=== PATIENT | female | born 1995 | race Hispanic/Latino ===

== ENCOUNTER 2017-08-03 23:54 | Emergency (ER) | payer SELFPAY ==
[2017-08-04] MEDS ORDERED: Dexamethasone 4 mg/ml Vial ONE (00:44)
[2017-08-04] MEDS ORDERED: Famotidine 20 MG TAB ONE (00:44)
== END 2017-08-04 00:53 | disposition home or self-care (01) ==
LOC: ERS 23:54
DX: L50.0 Allergic urticaria (principal)
CPT/HCPCS: 99283; J1100

== ENCOUNTER 2017-09-12 12:29 | Emergency (ER) | payer SELFPAY ==
[2017-09-12 13:15] LABS: #Basophils 0.1 thou/uL (0.0-0.2); #Eosinphils 0.2 thou/uL (0.0-0.7); #Lymphocytes 2.7 thou/uL (1.20-3.40); #Monocytes 0.5 thou/uL (0.11-0.59); #Neutrophils 2.5 thou/uL (1.40-6.50); %Basophils 1.5 % (0.0-1.0); %Lymphocytes 45.5 % (28.0-48.0); %Monocytes 7.6 % (0.0-4.0); %Neutrophils 42.4 % (31.0-61.0); Hemoglobin 14.3 g/dL (12.0-16.0); Mean Corpuscular HGB CONC 33.3 g/dL (32.0-36.0); Mean Corpuscular Volume 89.9 fl (77.0-87.0); Mean Platelet Volume 7.5 fL (7.4-10.4); Platelet Count 297 thou/uL (130-400); RBC Distribution Width 11.8 % (11.5-14.5); Red Blood Cell (RBC) Count 4.76 mill/uL (4.00-5.20); White Blood Cell (WBC) Count 5.9 thou/uL (4.8-10.8)
--- NOTE | 2017-09-12 14:02 | ULT ---
TRANSABDOMINAL AND TRANSVAGINAL PELVIC ULTRASOUND: INDICATION: Vaginal bleeding. TECHNIQUE: Frias scale, color Doppler, and vascular duplex with spectral analysis was performed. FINDINGS: The uterus measures 4.7 x 5.3 x 3.8 cm. Endometrial stripe measures 1.2 cm. No intrauterine gestati on is noted. The right ovary measures 2.5 x 1.4 x 1.8 cm. The left ovary measures 2.6 x 1.4 x 1.6 cm. There is n ormal flow to both ovaries. No free fluid is evident. IMPRESSION: No intrauterine gestation demonstrated. Findings may relate to early , a missed , o r early ectopic . Recommend continued clinical and sonographic followup. POS: ROBERT
[2017-09-12 15:59] LABS: Bilirubin Negative (Negative); Blood, Urine Large (Negative); Clarity CLOUDY (Clear); Glucose, Urine (Dipstick) Negative (Negative); Leukocyte Trace (Negative); Nitrite Negative (Negative); Protein, Urine (Dipstick) 100 mg/dL (Neg-Trace); Specific Gravity, Urine 1.014 (1.002-1.036); Urobilinogen 0.2 mg/dL (0.2-1.0)
[2017-09-12 16:02] LABS: Bacteria/HPF Rare-Few HPF (None Seen); Hyaline Casts/LPF 0-3 HYALINE CAST LPF (0-3 Hyaline); Pathc Cast-AUWi Flag 0.54 (0-2.49); RBC/HPF GREATER THAN 50-TNTC HPF (0-3)
== END 2017-09-12 16:35 | disposition home or self-care (01) ==
LOC: ERS 12:29
DX: O99.89 Other specified diseases and conditions complicating pregnancy, childbirth and the puerperium (principal); R10.2 Pelvic and perineal pain; Z3A.08 8 weeks gestation of pregnancy
CPT/HCPCS: 36415; 76856; 81003; 81015; 84702; 85025; 86850; 86900; 86901

== ENCOUNTER 2018-12-30 21:44 | Emergency (ER) | payer SELFPAY | END 2018-12-30 21:55 | disposition left against medical advice (07) | LOC: ERS 21:44 | DX: Z53.21 Procedure and treatment not carried out due to patient leaving prior to being seen by health care provider (principal) ==

== ENCOUNTER 2018-12-30 22:16 | Emergency (ER) | payer SELFPAY ==
[2018-12-30 23:05] LABS: #Basophils 0.1 thou/uL (0.0-0.2); #Eosinphils 0.3 thou/uL (0.0-0.7); #Monocytes 0.9 thou/uL (0.11-0.59); #Neutrophils 5.9 thou/uL (1.40-6.50); %Basophils 0.9 % (0.0-1.0); %Eosinophils 2.5 % (0.0-10.0); %Lymphocytes 35.5 % (21.0-51.0); %Monocytes 8.2 % (0.0-10.0); %Neutrophils 52.9 % (42.0-75.0); Hemoglobin 12.3 g/dL (12.0-16.0); Mean Corpuscular HGB CONC 32.4 g/dL (32.0-36.0); Mean Corpuscular Hemoglobin 28.2 pg (27.0-31.0); Mean Platelet Volume 7.1 fL (7.4-10.4); Platelet Count 287 thou/uL (130-400); Red Blood Cell (RBC) Count 4.38 mill/uL (4.20-5.40); White Blood Cell (WBC) Count 11.2 thou/uL (4.8-10.8)
[2018-12-30 23:07] LABS: Bilirubin Negative (Negative); Blood, Urine Negative (Negative); Clarity Clear (Clear); Glucose, Urine (Dipstick) Negative (Negative); Leukocyte Negative (Negative); Nitrite Negative (Negative); Protein, Urine (Dipstick) Negative (Neg-Trace); Urobilinogen 0.2 mg/dL (0.2-1.0)
[2018-12-30 23:19] LABS: Anion Gap 13 mmol/L (10-20); BUN (Urea Nitrogen) 9 mg/dL (7.0-18.7); Calc. Creatinine Clearance 0 mL/min (70-130); Calcium 9.5 mg/dL (7.8-10.44); Carbon Dioxide 22 mmol/L (22-29); Chloride 107 mmol/L (98-107); Estimated GFR-MDRD Greater than 90; Glucose 87 mg/dL (70-105); Potassium 3.6 mmol/L (3.5-5.1); Sodium 138 mmol/L (136-145)
--- NOTE | 2018-12-31 08:53 | ULT ---
PRELIMINARY REPORT/[facility]/EMERGENCY AFTER HOURS PROCEDURE: EXAM: US Duplex Left Lower Extremity Veins, Limited EXAM DATE/TIME: 12/31/2018 1:32 AM CLINICAL HISTORY: 49 years old, female; Pain; Leg, lower; Left TECHNIQUE: Imaging protocol: Real-time Duplex ultrasound of the Left Lower Extremity with 2-D ortiz scale, color Doppler flow and spectral waveform analysis. Limited exam focused on the left lower extremity veins. COMPARISON: No relevant prior studies available. FINDINGS: Left deep veins: Unremarkable. The common femoral, femoral, proximal profunda femoral and popliteal v eins are patent without thrombus. Normal Doppler waveforms. Normal compressibility and/or augmentatio n response. Left superficial veins: Unremarkable. Saphenofemoral junction is patent without thrombus. Soft tissues: Unremarkable. IMPRESSION: No acute findings. No evidence of deep vein thrombosis. Thank you for allowing us to participate in the care of your patient. Dictated and Authenticated by: Dariel Escobar MD 12/31/2018 2:59 AM Central Time ([place] & [place]) FINAL REPORT PELVIC ULTRASOUND: HISTORY: Pelvic pain. Positive . FINDINGS: Real-time imaging of the pelvis was obtained both transabdominally as well as endovaginally. This zoe ws an intrauterine gestational sac and a yolk sac, but no definite pole. The gestational sac me asurements are 8.0 mm, corresponding to 5 weeks/4 days. Right and left ovaries are both well visualized. There is a 1.5 cm right ovarian cyst present. Left o vary is normal in appearance. DOPPLER EVALUATION WITH SPECTRAL ANALYSIS: Normal flow is shown to both adnexa. Minimal free fluid incidentally seen. IMPRESSION: Intrauterine gestational sac with a yolk sac, but no definite pole at this time. This could rep resent an early . A blighted ovum is not excluded. Follow-up ultrasound is recommended as cl inically indicated. This report is in agreement with the preliminary report issued by [facility].
[2019-01-02 00:34] LABS: Chlamydia by PCR Not Detected (NotDetected); GC by PCR Not Detected (NotDetected)
== END 2018-12-31 02:00 | disposition home or self-care (01) ==
LOC: SCSER 22:16
DX: O99.89 Other specified diseases and conditions complicating pregnancy, childbirth and the puerperium (principal); R10.30 Lower abdominal pain, unspecified; Z3A.01 Less than 8 weeks gestation of pregnancy
CPT/HCPCS: 76856; 80048; 81003; 84702; 85025; 87480; 87491; 87510; 87591; 87660

== ENCOUNTER 2019-02-21 14:13 | Emergency (ER) | payer OTHER ==
[2019-02-21 15:09] LABS: #Eosinphils 0.1 thou/uL (0.0-0.7); #Monocytes 0.4 thou/uL (0.11-0.59); #Neutrophils 5.2 thou/uL (1.40-6.50); %Basophils 0.1 % (0.0-1.0); %Eosinophils 0.9 % (0.0-10.0); %Lymphocytes 25.7 % (21.0-51.0); %Monocytes 4.7 % (0.0-10.0); %Neutrophils 68.6 % (42.0-75.0); Hemoglobin 13.8 g/dL (12.0-16.0); Mean Corpuscular HGB CONC 35.4 g/dL (32.0-36.0); Mean Corpuscular Hemoglobin 30.2 pg (27.0-31.0); Mean Corpuscular Volume 85.2 fL (78.0-98.0); Platelet Count 268 thou/uL (130-400); RBC Distribution Width 11.8 % (11.5-14.5); Red Blood Cell (RBC) Count 4.58 mill/uL (4.20-5.40); White Blood Cell (WBC) Count 7.6 thou/uL (4.8-10.8)
[2019-02-21 15:27] LABS: ALT (SGPT) 13 U/L (8-55); AST (SGOT) 14 U/L (5-34); Albumin 4.4 g/dL (3.5-5.0); Alkaline Phosphatase 77 U/L (40-150); Anion Gap 14 mmol/L (10-20); BUN (Urea Nitrogen) 6 mg/dL (7.0-18.7); Bilirubin, Total 0.5 mg/dL (0.2-1.2); Calc. Creatinine Clearance 0 mL/min (70-130); Calcium 9.5 mg/dL (7.8-10.44); Carbon Dioxide 22 mmol/L (22-29); Chloride 102 mmol/L (98-107); Estimated GFR-MDRD Greater than 90; Globulin 3.6 g/dL (2.4-3.5); Glucose 109 mg/dL (70-105); Potassium 3.4 mmol/L (3.5-5.1); Sodium 135 mmol/L (136-145)
[2019-02-21 15:39] LABS: Bilirubin Negative (Negative); Blood, Urine Negative (Negative); Clarity CLOUDY (Clear); Glucose, Urine (Dipstick) Negative (Negative); Leukocyte Trace (Negative); Nitrite Negative (Negative); Protein, Urine (Dipstick) 30 mg/dL (Neg-Trace); Specific Gravity, Urine 1.036 (1.002-1.036)
[2019-02-21 15:41] LABS: Bacteria/HPF 1+ HPF (None Seen)
[2019-02-21 15:42] LABS: Pathc Cast-AUWi Flag 5.16 (0-2.49)
[2019-02-21 15:44] LABS: Hyaline Casts/LPF 0-3 HYALINE CAST LPF (0-3 Hyaline)
[2019-02-21] MEDS ORDERED: Ondansetron PF 4 MG/2 ML Vial ONE (15:48)
[2019-02-21 16:28] LABS: BHCG - Serum POSITIVE (NEGATIVE); Pregs Control Background? CLEAR/WHITE (CLR/WHITE); Pregs Control Bar Appear? YES (CONTROL BAR)
== END 2019-02-21 17:36 | disposition home or self-care (01) ==
LOC: ERS 14:13
DX: O21.1 Hyperemesis gravidarum with metabolic disturbance (principal); Z3A.13 13 weeks gestation of pregnancy
CPT/HCPCS: 36415; 80053; 81003; 81015; 84703; 85025; 96361; 96374; J2405

== ENCOUNTER 2019-08-04 21:32 | Day surgery (SDC) | payer OTHER ==
[2019-08-04] MEDS ORDERED: hydrALAZINE 20 MG/ML VIAL SLOW IVP PRN (22:00)
--- NOTE | 2019-08-04 22:01 | PDOC.FPROB ---
FMR OB H&P: HPI - History of Present Illness Chief Complaint: ctx Indentification: 23 y/o @ 36.0 WGA History of Present Illness: Presents with cramping abdominal pain since 2044 tonight. She has been at work all day and reports good fluid intake while at work. +FM, denies vaginal bleeding, d/c, LOF, dysuria. Primary Care Physician: Dr. Bridges FMR OB H&P: Current - Care : 1 Para: 0 Gestational age: 36.0 Due date: 09/01/19 FMR OB H&P: History - Past Medical History PMH: None - OB History OB History: - Surgical History Sx History: None - Social History Social History: Denies EtOH, drug, tobacco use - Family History Family History: Mother - DM FMR OB H&P: Medications - Current Allergies/Adverse Reactions: Allergies Allergy/AdvReac Type Severity Reaction Status Date / Time No Known Allergies Allergy Verified 08/04/19 22:07 FMR OB H&P: ROS - Review of Systems General: denies: fever/chills, weight/appetite/sleep changes Eyes: denies: vision changes, double vision ENT: denies: nasal congestion, sore throat Cardiovascular: reports: edema. denies: chest pain Respiratory: denies: cough, shortness of breath Gastrointestinal: reports: abdominal pain. denies: nausea Genitourinary (Female): denies: dysuria, hematuria, vaginal discharge, vaginal bleeding Musculoskeletal: denies: pain, swelling Neurologic: denies: numbness, weakness Integumentary: denies: itching, rash FMR OB H&P: Vital Signs - Maternal Vital signs: BP 121/73, HR 68, RR 18, Temp 98.3 - Heart Tones Baseline: 130 Variability: moderate Acceleration: present Deceleration: absent Category: category 1 [place] contractions every: None FMR OB H&P: Physical Exam - Physical Exam General: NAD, awake, alert and oriented HEENT: MMM, conjunctiva clear, grossly normal vision, grossly normal hearing Neck: supple, no LAD Heart: pulses present, other (trace pedal edema) General: no respiratory distress Abdomen: soft, gravid Musculoskeletal: pulses present, FROM in all four extremities Skin: good tugor, capillary refill <2 seconds Lymphatic: no unusual bruising or bleeding, no purpura Psychiatric: intact recent and remote memory, good judgement and insight - Pelvic Exam SVE: 1/0/-2 FMR OB H&P: A/P - Problem List (1) contractions Current Visit: Yes Status: Acute Code(s): O47.9 - FALSE LABOR, UNSPECIFIED Assessment and Plan: Pt presents complaining of cramping abd pain SVE 1/0/-2, no ctx on toco -Will check cath UA -1L LR -Recheck cervix in 2 hours d/c home if cervical check unchanged and further plan pending UA results Disposition: dispo pending 2 hour obs Discussion: Date/Time: 08/04/19 2200 This H&P was discussed with Dr. Hernandez who agrees with the above documentation and plan. Signature: Nicole He MD, PGY-3
[2019-08-04 22:05] VITALS: BMI 36.3
--- NOTE | 2019-08-04 22:25 | PDOC.EVN ---
Event Note - Event Note Event Note: @2200 OBG[facility] Faculty I have seen patient at bedside. At bedside now. CC: Possible CTX HPI: 23 yo G1 at 36 weeks with EDC 09/01/19. Here for possible CTX x 1 hr. Good FM No Vb, no LOF Review of Systems: complete and as per HPI Past medical: neg past surgical: none OB HX: G1 Meds: none Allergies: none Physical: NAD Abdomen soft and NT CX: 1cm/th/-3 per first exam Monitors: reactive NST...irritability on toco A/P: 36 weeks with possible CTX and CX 1cm...GBS not yet done in office. Plan: 1. 2 HR obs 2. IVFs 3. Monitors 4. Folllow for now
[2019-08-04] MEDS ORDERED: Lactated Ringer's 1,000 ML IV SCH (22:30)
[2019-08-04 23:04] LABS: Bacteria/HPF None Seen HPF (None Seen); Bilirubin Negative (Negative); Blood, Urine Negative (Negative); Clarity Clear (Clear); Glucose, Urine (Dipstick) Normal (Negative); Leukocyte Negative Leu/uL (Negative); Nitrite Negative (Negative); Protein, Urine (Dipstick) Negative (Neg-Trace); RBC/HPF None Seen HPF (0-3); Squamous Epithelial 0-3 HPF (0-3); Urobilinogen Normal mg/dL (Less than 2); WBC/HPF None Seen HPF (0-3)
[2019-08-04 23:05] LABS: Urine Culture Reflex No No
--- NOTE | 2019-08-04 23:19 | PDOC.EVN ---
Event Note - Event Note Event Note: UA is clear
== END 2019-08-05 00:25 | disposition home or self-care (01) ==
LOC: L&D/OP 21:32
PROVIDERS: ATTEND Student in an Organized Health Care Education/Training Program
DX: O47.03 False labor before 37 completed weeks of gestation, third trimester (principal); Z3A.36 36 weeks gestation of pregnancy
CPT/HCPCS: 81001

== ENCOUNTER 2019-08-22 07:54 | Inpatient (IN) | payer OTHER ==
[2019-08-22] MEDS ORDERED: Bupivacaine 0.25% HCL 30 ML VIAL ONE (12:59)
[2019-08-22] MEDS ORDERED: Bupivacaine HCl 0.5%/Epinephrine 1:200,000/PF 30 ml Vial ONE (12:59)
[2019-08-22] MEDS ORDERED: Bupivacaine/Epinephrine 0.25% 30 ML VIAL ONE (12:59)
[2019-08-22 13:04] LABS: Amnisure Test RUPTURE DETECTED (No Rupture)
[2019-08-22 13:05] LABS: Amnisure Internal Control QC ACCEPTABLE (ACCEPTABLE)
[2019-08-22 13:08] VITALS: BMI 37.1
--- NOTE | 2019-08-22 13:21 | PDOC.LDHP ---
Labor and Delivery H&P Chief complaint: contractions HPI: 23 yo G1 @ 38w4d by LMP c/w 9 week CRL. Benign antepartum course. C/O ctx and also had some slight LOF after walking. Amnisure positive. Current gestational age (weeks): 38 Due date: 09/01/19 Dating criteria: last menstrual period Grav: 1 Para: 0 Current complications: none Abnormal US findings: No Past Medical History: Denies Current medications: pre-darell vitamins Previous surgical history: none Allergies/Adverse Reactions: Allergies Allergy/AdvReac Type Severity Reaction Status Date / Time No Known Allergies Allergy Verified 08/22/19 09:23 Social history: none - Physical Exam Vital signs reviewed and normal: yes General: NAD Heart: RRR Lungs: nonlabored breathing Abdomen: gravid Extremeties: no edema FHT: category 1 [place] contractions every: q3-5 min - Vaginal Exam cm dilated: 3 (BBOW, cepahlic ) Effacement: 50% Station: -2 - OB Labs Blood type: O RH: positive Antibody Screen: negative HIV: negative RPR: negative HEPSAg: negative 1 hour GCT: negative GBS: negative Urine drug screen: negative Rubella: immune - Assessment 38wd4 IUP Latent labor SROM - Plan Plan: admit to L&D, labor augmentation if indicated, informed consent obtained, anesthesia consult for pain management
[2019-08-22] MEDS ORDERED: hydrALAZINE 20 MG/ML VIAL SLOW IVP PRN (13:23)
[2019-08-22] MEDS ORDERED: Misoprostol 200 MCG TAB PR PRN (13:23)
[2019-08-22] MEDS ORDERED: Acetaminophen 500 MG TAB PO PRN (13:23)
[2019-08-22] MEDS ORDERED: HYDROcodone/Acetaminophen 5/325 mg Tablet PO PRN (13:23)
[2019-08-22] MEDS ORDERED: Methylergonovine 0.2 MG/ML VIAL IM PRN (13:23)
[2019-08-22] MEDS ORDERED: Lidocaine 1% (PF) 30 ML VIAL SC PRN (13:23)
[2019-08-22] MEDS ORDERED: Carboprost 250 MCG/ML AMP IM PRN (13:23)
[2019-08-22] MEDS ORDERED: Ondansetron PF 4 MG/2 ML Vial IVP PRN (13:23)
[2019-08-22] MEDS ORDERED: Diphenoxylate HCl/Atropine Tablet PO PRN (13:23)
[2019-08-22] MEDS ORDERED: Promethazine HCl 25 MG/ML VIAL IM PRN (13:23)
[2019-08-22] MEDS ORDERED: Ibuprofen 800 MG TAB PO PRN (13:23)
[2019-08-22 14:27] LABS: Hemoglobin 9.6 g/dL (12.0-16.0); Mean Corpuscular HGB CONC 32.6 g/dL (32.0-36.0); Mean Corpuscular Hemoglobin 25.9 pg (27.0-31.0); Mean Corpuscular Volume 79.3 fL (78.0-98.0); Mean Platelet Volume 10.2 fL (7.4-10.4); Platelet Count 210 thou/uL (130-400); RBC Distribution Width 14.5 % (11.5-14.5); White Blood Cell (WBC) Count 10.3 thou/uL (4.8-10.8)
--- NOTE | 2019-08-22 14:31 | HP ---
TIME OF EVALUATION: 1400 hours. LOCATION: Triage in Labor and Delivery. REASON FOR EVALUATION: Contractions and possible leakage of fluid. HISTORY OF PRESENT ILLNESS: This is a 23-year-old, G1, P0, at 38 weeks and 4 days with an EDC of September 01, 2019, here with the above chief complaint. She has good movement. Denies any issues. REVIEW OF SYSTEMS: Complete review of systems was checked and is otherwise negative unless specified in the HPI. PAST MEDICAL HISTORY: Negative. PAST SURGICAL HISTORY: Noncontributory. ALLERGIES: NONE. OB HISTORY: She is a G1, P0, and her GBS is negative. PHYSICAL EXAMINATION: VITAL SIGNS: Her blood pressure is 120/80, blood pressure is normal; and her temperature is 98.4. Cervical exam by RN; it is 3 cm dilated, 50% effaced, -3 station, slightly posterior. Due to the leakage of fluid history, an AmniSure was sent and AmniSure was positive. On monitor, heart tones were in the 130s to 140s with moderate variability and accelerations. It is category 1. Tocodynamometer shows irregular contractions, but about every 3 to 6 minutes. ASSESSMENT: This is a G1, P0, at early term (38 weeks and 4 days), with latent labor and rupture of membranes. PLAN: 1. Admission to Labor and Delivery. 2. Pain control. 3. Pitocin augmentation if needed. 4. The patient has been seen at bedside by me and plan reviewed. Job ID: [id number]
[2019-08-22 15:03] LABS: Syphilis Antibody Nonreactive (Nonreactive); Syphilis Antibody Index 0.04 S/CO (<1.00 Non-Reactive)
[2019-08-22 15:04] LABS: HBSAg Index 0.25 S/CO (0-0.99); HIV (1/2) Antibody/Antigen Non-Reactive (NonReactive); HIV 1/2 INDEX 0.06 S/CO (<1.00); Hep B Surf Ag Non-Reactive S/CO (NonReactive)
--- NOTE | 2019-08-22 17:25 | PDOC.LDPN ---
Labor & Delivery Progress Note - Subjective Subjective: painful contractions - Objective Abnormal vital signs: 149/89 as I was explaining IUPC to her (stress response?) General: breathing through contractions Uterine fundus: non tender SVE: 3 Dilation: 75 Station: -1 FHT: category 1 [place] contractions every: irregular every 3-6 Other exam findings: Posterior Procedures: IUPC placed by me AROM: bloody fluid IUPC placed: yes - Assessment (1) pitocin augmentation Current Visit: Yes Status: Acute Plan: continue plan of care, other (IUPC placed. Suggested VALENTÍN for pain control. Order CMP for BP )
[2019-08-22 18:20] LABS: ALT (SGPT) Less than 7 U/L (8-55); AST (SGOT) 14 U/L (5-34); Albumin 3.4 g/dL (3.5-5.0); Alkaline Phosphatase 284 U/L (40-110); Anion Gap 14 mmol/L (10-20); BUN (Urea Nitrogen) 6 mg/dL (7.0-18.7); Bilirubin, Total 0.5 mg/dL (0.2-1.2); Calc. Creatinine Clearance 197 mL/min (70-130); Calcium 8.8 mg/dL (7.8-10.44); Carbon Dioxide 20 mmol/L (22-29); Chloride 106 mmol/L (98-107); Estimated GFR-MDRD Greater than 90; Globulin 3.5 g/dL (2.4-3.5); Glucose 78 mg/dL (70-105); Potassium 3.4 mmol/L (3.5-5.1); Protein, Total 6.9 g/dL (6.0-8.3); Sodium 137 mmol/L (136-145)
[2019-08-22] MEDS: Butorphanol Tartrate 1 MG/ML VIAL SLOW IVP PRN ×2 (19:10→20:39)
--- NOTE | 2019-08-22 20:11 | PDOC.EVN ---
Event Note - Event Note Event Note: L&D Check At bedside Patient resting BP 134/86 cat 1 [place] (IUPC was not working) with CTX every 2-3 min or so Continue Plan Pitocin in use
[2019-08-22] MEDS: Lactated Ringer's 1,000 ML IV SCH (20:12)
[2019-08-22] MEDS ORDERED: Fentanyl 4 mcg/Bup 0.1% Cadd 100 ML ONE (21:22)
[2019-08-22] MEDS ORDERED: Lidocaine 1.5%/Epinephrine 1:200,000 5 ML AMPUL IJ ONE (21:41)
[2019-08-23] MEDS: Lactated Ringer's 1,000 ML IV SCH ×4 (02:02→14:46)
[2019-08-23] MEDS: NS w/ Oxytocin 10 units 500 ML IV SCH ×2 (02:07→14:46)
[2019-08-23] MEDS ORDERED: Fentanyl 4 mcg/Bup 0.1% Cadd 100 ML ONE (03:40)
--- NOTE | 2019-08-23 03:52 | PDOC.EVN ---
Event Note - Event Note Event Note: TEMPERATURE/IAI note Temp is 101....we will start amp and gent now. She is 9cm now Continue pitocin
[2019-08-23] MEDS ORDERED: Gentamicin Sulfate 120 MG in Premix Bag 1 BAG IVPB SCH (04:00)
--- NOTE | 2019-08-23 05:24 | PDOC.OPDEL ---
OB Operative/Delivery Note Delivery Dr/Surgeon: David Assist: None Pre-Delivery Diagnosis: active labor, other (Intraamniotic Infection (maternal temp; on ABX)) Procedure/Post Delivery Dx: spontaneous vaginal delivery (at 0457) Weeks gestation: 38 Anesthesia: epidural - Findings A Sex: male - 1 min: 8 - 5 min: 9 - Additional Findings/Plan Placenta delivered: spontaneous (schmid at 0504, intact with 3VC) Repaired Obstetrical Laceration: 2nd degree (mildline, repaired with 2-0 chromic in usual fashion. VALENTÍN used and local for reoair) Estimated blood loss: 500ml QBL (300 in cannisyter, and added 200ml for laps) Compilations/Other Findings: no NC Baby nigorous at ; NICU called for delivery but they left after baby was born vigorous. I placed cytotec 800mcg ID prophylactically due to maternal temp and risk factor for PPH. I discussed this with the patient. Placenta sent to path; cord gas (art) sent Post delivery plan: routine recovery
[2019-08-23 05:27] LABS: Actual Bicarbonate (HCO3v) 18 mEq/L (22-28)
[2019-08-23] MEDS ORDERED: Milk Of Magnesia 30 ML UDCUP PO PRN (05:27)
[2019-08-23] MEDS ORDERED: Adacel (T-DAP) 0.5 ML SYRINGE IM ONE (05:27)
[2019-08-23] MEDS ORDERED: Ondansetron PF 4 MG/2 ML Vial IVP PRN (05:27)
[2019-08-23] MEDS ORDERED: diphenhydrAMINE 25 MG CAP PO PRN (05:27)
[2019-08-23] MEDS ORDERED: Benzocaine-Menthol 82.5 ML CAN TOP PRN (05:27)
[2019-08-23] MEDS ORDERED: Bisacodyl 10 MG SUPP PR PRN (05:27)
[2019-08-23] MEDS ORDERED: Acetaminophen/Codeine 30-300mg Tablet PO PRN ×2 (05:27)
[2019-08-23] MEDS ORDERED: hydrALAZINE 20 MG/ML VIAL SLOW IVP PRN (05:27)
[2019-08-23] MEDS ORDERED: Varicella virus, LIVE 0.5 ML VIAL SC ONE (05:27)
[2019-08-23] MEDS ORDERED: Preparation H Ointment 28 GM TUBE PR PRN (05:27)
[2019-08-23 05:30] LABS: Actual Bicarbonate (HCO3a) 17.4 mEq/L (22-28); Base Excess (BEa) -8.6 mEq/L (-2.0 to +3.0)
[2019-08-23] MEDS ORDERED: NS / Oxytocin 40 units/1000ml 1,000 ML IV SCH (05:30)
--- NOTE | 2019-08-23 05:32 | PDOC.EVN ---
Event Note - Event Note Event Note: As maternal temp was tmax 102 prior to delivery and as temp was 101 just now (PP ), I have written to continue ABX for 24 hrs with self-stop tomorrow AM at 0600. Follow temps
[2019-08-23] MEDS: NS / Oxytocin 40 units/1000ml 1,000 ML IV PRN ×2 (05:38→06:40)
--- NOTE | 2019-08-23 05:40 | PDOC.EVN ---
Event Note - Event Note Event Note: Art Cord gas normal PH
[2019-08-23] MEDS ORDERED: Ampicillin 2 GM in Sodium Chloride 0.9% 100 ML IVPB SCH (06:00)
[2019-08-23] MEDS ORDERED: Prenatal Vitamin 1 TAB PO SCH (09:00)
[2019-08-23] MEDS: Ferrous Sulfate 325 MG TAB PO SCH ×2 (09:57→18:14)
[2019-08-23] MEDS: Docusate Calcium (SURFAK) 240 MG CAP PO SCH (09:57)
--- NOTE | 2019-08-23 11:48 | PDOC.PP ---
Post Progress Note Post Day #: 0 Subjective: no complaints, no pain other than stitches. Bleeding like a period. PO intake tolerated: yes Flatus: yes Ambulation: yes Vital Signs (12 hours) Temp Pulse Resp BP 08/23/19 08:00 98.6 F 92 18 114/64 Weight Weight 203 lb - Physical Examination General: NAD Respiratory: non-labored breathing Abdominal: no distention, appropriately TTP Fundus firm & at: umb Extremities: negative homans (B) Neurological: no gross focal deficits Psychiatric: normal affect Result Diagrams: 08/22/19 14:11 08/22/19 17:42 Additional Labs: Post Labs Blood Type O POSITIVE 08/22/19 14:11 Hep Bs Antigen Non-Reactive S/CO (NonReactive) 08/22/19 14:11 - Assessment/Plan PPD0 s/p TSVD VSSAF Tmax during delivery 102, afebrile since, s/p amp/gent. IV infiltrated and had 4 attempted IV starts. DC abx as sufficient treatment given for current illness. Routine PP care.
[2019-08-23] MEDS: Ibuprofen 800 MG TAB PO SCH ×2 (12:27→14:02)
[2019-08-23] MEDS ORDERED: Gentamicin Sulfate 80 MG in Premix Bag 1 BAG IVPB SCH (14:00)
[2019-08-24] MEDS: Ibuprofen 800 MG TAB PO SCH ×3 (03:33→21:59)
[2019-08-24] MEDS: Docusate Calcium (SURFAK) 240 MG CAP PO SCH ×3 (03:33→21:59)
[2019-08-24] MEDS ORDERED: Acetaminophen 500 MG TAB PO PRN (03:42)
[2019-08-24] MEDS ORDERED: Promethazine HCl 25 MG/ML VIAL IM PRN (03:43)
[2019-08-24] MEDS ORDERED: Acetaminophen/Codeine 30-300mg Tablet PO PRN ×2 (03:44)
[2019-08-24] MEDS ORDERED: hydrALAZINE 20 MG/ML VIAL SLOW IVP PRN (03:45)
[2019-08-24] MEDS ORDERED: Bisacodyl 10 MG SUPP PR PRN (03:45)
[2019-08-24] MEDS ORDERED: Benzocaine-Menthol 82.5 ML CAN TOP PRN (03:45)
[2019-08-24] MEDS ORDERED: diphenhydrAMINE 25 MG CAP PO PRN (03:45)
[2019-08-24] MEDS ORDERED: NS w/ Oxytocin 10 units 500 ML IV SCH (03:45)
[2019-08-24] MEDS ORDERED: Milk Of Magnesia 30 ML UDCUP PO PRN (03:46)
[2019-08-24] MEDS ORDERED: Preparation H Ointment 57 gram tube RC PRN (03:47)
[2019-08-24] MEDS ORDERED: Ondansetron PF 4 MG/2 ML Vial IVP PRN (03:47)
[2019-08-24] MEDS ORDERED: NS / Oxytocin 40 units/1000ml 1,000 ML IV SCH (04:00)
[2019-08-24] MEDS ORDERED: Ibuprofen 800 MG TAB PO SCH (06:00)
--- NOTE | 2019-08-24 07:24 | PRG ---
DATE OF SERVICE: 08/24/2019 TIME OF SERVICE: 0700 hours. SUBJECTIVE: The patient is resting comfortably. She has no complaints. The patient has remained afebrile . OBJECTIVE: VITAL SIGNS: Stable. ANESTHESIA ASSOCIATE: Her fundus is firm. She is breast-feeding with ease. EXTREMITIES: Without clubbing, cyanosis, or edema. Antibiotics were discontinued after 2 doses. The patient has no complaints. IMPRESSION: day 1 to 2 status post chorioamnionitis at the delivery with no febrile morbidity post delivery. PLAN: Routine care. Discharge home, 08/25. Job ID: [id number]
[2019-08-24] MEDS: Lactated Ringer's 1,000 ML IV SCH ×2 (07:29→10:16)
[2019-08-24] MEDS: Ferrous Sulfate 325 MG TAB PO SCH ×2 (07:56→16:51)
[2019-08-24] MEDS: Prenatal Vitamin 1 TAB PO SCH (07:56)
--- NOTE | 2019-08-24 17:15 | PDOC.PP ---
Post Progress Note Post Day #: 1 Subjective: PT is doing well. She has mild soreness and bleeding similar to menses. No fever or chills. Baby is breast feeding and latching well. She has been up and ambulatory and urinating normally. NO chest pain, shortness or breath or leg swelling. PO intake tolerated: yes Flatus: yes Ambulation: yes Vital Signs (12 hours) Temp Pulse Resp BP Pulse Ox 08/24/19 16:50 97.6 F 08/24/19 11:30 98.6 F 08/24/19 08:34 97.6 F 80 20 118/68 98 Weight Weight 203 lb - Physical Examination General: NAD Respiratory: non-labored breathing Abdominal: + bowel sounds, lochia, no distention, appropriately TTP Fundus firm & at: 1 cm below umbilicus Extremities: negative homans (B) Skin: no rash Neurological: no gross focal deficits Psychiatric: A&Ox3, normal affect Result Diagrams: 08/22/19 14:11 08/22/19 17:42 Additional Labs: Post Labs Blood Type O POSITIVE 08/22/19 14:11 Hep Bs Antigen Non-Reactive S/CO (NonReactive) 08/22/19 14:11 (1) Chorioamnionitis, delivered, current hospitalization Code(s): O41.1290 - CHORIOAMNIONITIS, UNSP TRIMESTER, NOT APPLICABLE OR UNSP Status: Acute (2) Perineal laceration, second degree, delivered Code(s): O70.1 - SECOND DEGREE PERINEAL LACERATION DURING DELIVERY Status: Acute (3) Vaginal delivery Code(s): O80 - ENCOUNTER FOR FULL-TERM UNCOMPLICATED DELIVERY Status: Acute - Assessment/Plan PT doing well today. She remains afebrile. Antibiotics d/c's after 2 doses. Continue routine PP care with plan for d/c 08/25. Case discussed Dr. Crowder who will round on patient tomorrow.
[2019-08-25] MEDS: Ibuprofen 800 MG TAB PO SCH (06:26)
[2019-08-25 08:13] LABS: Hemoglobin 6.9 g/dL (12.0-16.0); Mean Corpuscular HGB CONC 32.7 g/dL (32.0-36.0); Mean Corpuscular Hemoglobin 26.3 pg (27.0-31.0); Mean Corpuscular Volume 80.4 fL (78.0-98.0); Mean Platelet Volume 8.9 fL (7.4-10.4); Platelet Count 173 thou/uL (130-400); RBC Distribution Width 14.8 % (11.5-14.5); White Blood Cell (WBC) Count 9.7 thou/uL (4.8-10.8)
--- NOTE | 2019-08-25 08:26 | DIS ---
DATE OF ADMISSION: 08/22/2019 DATE OF DISCHARGE: 08/25/2019 ADMITTING DIAGNOSES: 1. Intrauterine at 38 weeks. 2. Rupture of membranes. 3. Latent labor. DISCHARGE DIAGNOSES: 1. Intrauterine at 38 weeks. 2. Rupture of membranes. 3. Latent labor. PROCEDURE PERFORMED: Term-spontaneous vaginal delivery. CONSULTATIONS: None. HOSPITAL COURSE: The patient is a 23-year-old G1, now P1 female, who presented to Labor and Delivery after leakage of fluid and on evaluation, was noted to have rupture of membranes and libertad. The patient was admitted, augmented, and resulting in an uncomplicated term spontaneous vaginal delivery. For complete details, please refer to the delivery note. Her labor course was complicated by chorioamnionitis and was placed on antibiotics for 24 hours. She has remained afebrile without any evidence of persistent infection. Her course has otherwise been uncomplicated. Today is day #2, she is tolerating p.o., voiding on her own, having decreased lochia and good pain control. PHYSICAL EXAMINATION: VITAL SIGNS: This morning, blood pressure is 125/85, temperature is 98.3, pulse of 94, respiratory rate of 20, saturating 96% on room air. GENERAL: She appears to be in no acute distress. She is alert and oriented, cooperative, and pleasant to interact with. HEAD: Normocephalic and atraumatic. FUNDUS: Firm at the umbilicus. EXTREMITIES: Nontender and nonedematous. LABORATORY STUDIES: Her starting hemoglobin is 9.6, hematocrit 29.3, and platelets 210,000. DISCHARGE INSTRUCTIONS: The patient is being discharged to home with ibuprofen to be taken as needed for pain control. She has instructions to seek medical attention should she experience increasing pain, fever, bleeding; otherwise, will follow up with Dr. Bridges in 6 weeks. Prior to discharge, the patient will be drawn a postdelivery hemoglobin and hematocrit, just given her starting hemoglobin of 9.6, hematocrit 29.3, and estimated blood loss of 500. The patient has no symptoms at this time. Her oncoming physician Dr. Hernandez will follow up with that and make adjustments to her discharge planning as necessary. H/H 6.9/20.9 asymptomatic. chronic anemia with acute blood loss anemia. asymptomatic. continue iron Job ID: [id number] [facility]
[2019-08-25 08:39] VITALS: BP 121/73; TEMP 98.5
[2019-08-25] MEDS: Prenatal Vitamin 1 TAB PO SCH (09:17)
[2019-08-25] MEDS: Ferrous Sulfate 325 MG TAB PO SCH (09:17)
[2019-08-25] MEDS: Docusate Calcium (SURFAK) 240 MG CAP PO SCH (09:17)
== END 2019-08-25 12:17 | disposition home or self-care (01) | DRG 807 ==
LOC: L&D/OP 07:54 → L&D 11:12 → L&D/OP 15:25 → 3SW 08-23 08:34 → UNDODISIN 08-23 13:35
PROVIDERS: ADMIT Student in an Organized Health Care Education/Training Program; ATTEND Student in an Organized Health Care Education/Training Program
PROC: 10E0XZZ Delivery of Products of Conception, External Approach (ICD-10-PCS; principal; 2019-08-22)
PROC: 0KQM0ZZ Repair Perineum Muscle, Open Approach (ICD-10-PCS; 2019-08-22)
DX: O41.1230 Chorioamnionitis, third trimester, not applicable or unspecified (principal); Z37.0 Single live birth; Z3A.38 38 weeks gestation of pregnancy; O70.1 Second degree perineal laceration during delivery
CPT/HCPCS: 36415; 80053; 82805; 84112; 85027; 86780; 86850; 86900; 86901; 87340; 87389; 88307; J0290; J0595; J0670; J1580; J2590; J3490; S0020

== ENCOUNTER 2021-10-15 13:16 | Emergency (ER) | payer OTHER, SELFPAY ==
[2021-10-15] MEDS ORDERED: Lorazepam 2 MG/ML VIAL ONE ×2 (13:29→13:45)
[2021-10-15 13:35] LABS: #Lymphocytes 0.9 thou/uL (1.20-3.40); #Neutrophils 1.2 thou/uL (1.40-6.50); %Basophils 0.3 % (0.0-1.0); %Eosinophils 0.3 % (0.0-10.0); %Lymphocytes 41.2 % (21.0-51.0); %Monocytes 1.7 % (0.0-10.0); %Neutrophils 56.4 % (42.0-75.0); Hemoglobin 13.3 g/dL (12.0-16.0); Mean Corpuscular HGB CONC 33.6 g/dL (32.0-36.0); Mean Corpuscular Hemoglobin 30.5 pg (27.0-31.0); Mean Corpuscular Volume 90.9 fL (78.0-98.0); Mean Platelet Volume 7.6 fL (7.4-10.4); Platelet Count 210 thou/uL (130-400); RBC Distribution Width 11.1 % (11.5-14.5); Red Blood Cell (RBC) Count 4.37 mill/uL (4.20-5.40); White Blood Cell (WBC) Count 2.2 thou/uL (4.8-10.8)
[2021-10-15 13:55] LABS: ALT (SGPT) 15 U/L (8-55); AST (SGOT) 18 U/L (5-34); Alkaline Phosphatase 130 U/L (40-110); Anion Gap 17 mmol/L (10-20); BHCG - Serum POSITIVE (NEGATIVE); BUN (Urea Nitrogen) 9 mg/dL (7.0-18.7); Bilirubin, Total 1.5 mg/dL (0.2-1.2); Calc. Creatinine Clearance 0 mL/min (70-130); Calcium 8.8 mg/dL (7.8-10.44); Carbon Dioxide 16 mmol/L (22-29); Chloride 105 mmol/L (98-107); Globulin 3.7 g/dL (2.4-3.5); Glucose 114 mg/dL (70-105); Potassium 3.7 mmol/L (3.5-5.1); Protein, Total 7.7 g/dL (6.0-8.3); Sodium 134 mmol/L (136-145)
[2021-10-15 13:56] LABS: Pregs Control Background? CLEAR/WHITE (CLR/WHITE); Pregs Control Bar Appear? YES (CONTROL BAR)
[2021-10-15 14:19] LABS: Magnesium 1.3 mg/dL (1.6-2.6)
[2021-10-15] MEDS ORDERED: Magnesium 2 GM/50 ML BAG (IN WATER) ONE (14:29)
[2021-10-15] MEDS ORDERED: Ketorolac Tromethamine 30 MG/ML VIAL ONE (14:57)
[2021-10-15] MEDS ORDERED: Piperacillin/Tazobactam 4.5 GM VIAL ONE (16:30)
[2021-10-15] MEDS ORDERED: Norepinephrine 8 MG/0.9% NS 250 ML ONE (17:02)
== END 2021-10-15 17:20 | disposition short-term general hospital (02) ==
LOC: ERS 13:16
DX: O03.87 Sepsis following complete or unspecified spontaneous abortion (principal); R00.0 Tachycardia, unspecified
CPT/HCPCS: 36415; 71045; 76856; 80053; 83605; 83735; 84484; 84702; 84703; 85025; 86850; 86900; 86901; 87040; 87077; 87149; 87186; 93005; 93976; 96365; 96374; 96375; 96376; J1885; J2060; J2543; J3475